=== PATIENT | female | born 1955 | race Caucasian/White ===

== ENCOUNTER → 2019-09-17 16:24 | Outpatient (BNVA) | payer MEDICARE, OTHER, SELFPAY | PROVIDERS: Family Provider Family Medicine; PCP Family Medicine; Visit Provider Internal Medicine Cardiovascular Disease | DX: I65.23 Occlusion and stenosis of bilateral carotid arteries (principal); E11.9 Type 2 diabetes mellitus without complications; I73.9 Peripheral vascular disease, unspecified; E78.5 Hyperlipidemia, unspecified; E66.9 Obesity, unspecified; G47.33 Obstructive sleep apnea (adult) (pediatric); Z99.89 Dependence on other enabling machines and devices | CPT/HCPCS: 83036 ==

== ENCOUNTER 2019-12-30 13:51 | Outpatient (CLI) | payer MEDICARE, OTHER, SELFPAY ==
--- NOTE | 2019-12-30 14:15 | USCV_ITS ---
Eamonmatias Janelle Age: 64 Gender: F : 1955 Exam Date: 12/30/2019 14:04 Ordering Phys: Raúl Wallace MD ([email or web address]) Technologist: Bruce Roger [place] [facility] [place] LT SIDE ICA OCCLUSION Risk Factors: Previous Vascular Surgery: Right Brachial BP: / Left Brachial BP: / Right Left Velocity (cm/s) Spectral Plaque Velocity (cm/s) Spectral Plaque Syst/Diast Broadening Syst/Diast Broadening 99.20/ 28.70 Prox CCA 42.10 / 11.40 87.10/ 28.70 Mid CCA 36.40 / 5.70 68.70/ 23.40 Distal CCA 35.90 / 7.40 76.80/ 29.90 Prox ICA / Hetro 83.00/ 39.00 Mid ICA / Hetro 105.90/48.50 Distal ICA / Homo 109.10 ECA 141.10 1.07 ICA/CCA Antegrade Vertebral Antegrade 64.70/ 17.80 cm/s 56.70/ 15.80 cm/s Tri Subclavian Tri 70.30 134.5 0 FINDINGS Moderately heavy heterogeneous plaques of the left bifurcation. No Doppler flow signals in the left internal carotid artery. CONCLUSIONS 1. 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 Mild diffuse plaques in the common carotid artery and at the bifurcations bilaterally Dr Tash Rendon MD [facility] (Electronically Signed) Final Date: 30 Dec 2019 18:12 S
== END 2019-12-30 13:52 | disposition home or self-care (01) ==
LOC: RAD 13:55
PROVIDERS: Family Provider Family Medicine; PCP Family Medicine; Visit Provider Internal Medicine Cardiovascular Disease
DX: I65.22 Occlusion and stenosis of left carotid artery (principal)
CPT/HCPCS: 93880